=== PATIENT | male | born 1955 | race Caucasian/White ===

== ENCOUNTER → 2019-10-28 | Outpatient (CLI) | payer BC ==
[~2019-10-28] MED LIST: ASPI81CH PO; ATOR40TA PO; Crutch1 EACH MISC; LOVA40; Naprosyn375 MG PO; Norco 5-325 Ta1 EACH PO; VARIOUS VITAMINS
== END | disposition home or self-care (01) ==
LOC: LAB SHORT 14:27 → PLD 14:27
DX: D22.5 Melanocytic nevi of trunk (principal)
CPT/HCPCS: 88305; 88342

== ENCOUNTER → 2019-12-03 | Outpatient (CLI) | payer BC | END | disposition home or self-care (01) | LOC: LAB SHORT 12:32 → PLD 12:32 | DX: D22.5 Melanocytic nevi of trunk (principal) | CPT/HCPCS: 88305 ==